=== PATIENT | female | born 1935 | race Asian ===

== ENCOUNTER 2017-08-27 14:10 | Inpatient (IN) | payer MEDICARE ==
[~2017-08-27] VITALS: Ht 152.4 cm; Wt 51.3 kg
[2017-08-27 15:50] LABS: CALCIUM 8.7 mg/dL (8.5-10.1); CARBON DIOXIDE 25.9 mmol/L (21-32); CHLORIDE SERUM 102 mmol/L (98-107); CREATININE SERUM 0.7 mg/dL (0.6-1.0); GLUCOSE SERUM 156 mg/dL (74-106); POTASSIUM SERUM 3.6 mmol/L (3.5-5.1); SODIUM SERUM 138 mmol/L (136-145)
[2017-08-27 15:58] LABS: BASOPHIL % 0.6 % (0-2); PLATELET COUNT 356 x10^3mcL (130-400); RED CELL DISTRIBUTION WIDTH 13.3 % (11.5-14.5)
[2017-08-27 16:03] LABS: ALBUMIN 3.7 g/dL (3.4-5.0); ALKALINE PHOSPHATASE 75 U/L (46-116); ALT/SGPT 34 U/L (14-59); AMYLASE 65 U/L (25-115); AST/SGOT 25 U/L (15-37); BILIRUBIN TOTAL 0.58 mg/dL (0.20-1.00); HDL CHOLESTEROL 37 mg/dL (40-60); LIPASE 320 IU/L (73-393); MAGNESIUM 2.1 mg/dL (1.8-2.4); T4(THYROXINE) 6.5 ug/dL (4.7-13.3)
[2017-08-27 16:04] LABS: CHOLESTEROL 238 mg/dL (<200); TOTAL PROTEIN, SERUM 8.3 g/dL (6.4-8.2)
[2017-08-27 16:31] LABS: UA SPECIFIC GRAVITY <=1.005 (1.005-1.035); microscopic required? YES; urine erythrocyte NEGATIVE (NEGATIVE)
[2017-08-27 16:39] LABS: AMPHETAMINE QUAL UR NONE DETECTED (NEG <=1000)
[2017-08-27 18:17] LABS: HDL CHOLESTEROL 36 mg/dL (40-60)
[2017-08-27 18:19] LABS: CHOLESTEROL 228 mg/dL (<200); CHOLESTEROL/HDL RATIO 6.3; TRIGLYCERIDES 526 mg/dL (<150)
[2017-08-27] MEDS ORDERED: METOPROLOL TART25 M1 (18:42)
[2017-08-27] MEDS ORDERED: LOSARTAN POTASS25 M1 PO (18:42)
[2017-08-27 19:07] VITALS: BP 168/84
[2017-08-27] MEDS ORDERED: LOPRESSOR100 M1 PO (20:12)
[2017-08-27] MEDS ORDERED: ALENDRONATE SOD35 M3 PO (20:13)
[2017-08-27 21:05] VITALS: BP 147/84
[2017-08-28] VITALS (10 sets, daily range): BP systolic 111–172; BP diastolic 50–78
[2017-08-28 07:10] LABS: BASOPHIL % 0.6 % (0-2); PLATELET COUNT 312 x10^3mcL (130-400); RED CELL DISTRIBUTION WIDTH 13.4 % (11.5-14.5)
[2017-08-28 07:19] LABS: CARBON DIOXIDE 23.9 mmol/L (21-32); CHLORIDE SERUM 108 mmol/L (98-107); CREATININE SERUM 0.6 mg/dL (0.6-1.0); GLUCOSE SERUM 117 mg/dL (74-106); MAGNESIUM 2.1 mg/dL (1.8-2.4); PHOSPHOROUS 2.6 mg/dL (2.5-4.9); POTASSIUM SERUM 3.2 mmol/L (3.5-5.1); SODIUM SERUM 144 mmol/L (136-145)
[2017-08-29] VITALS (7 sets, daily range): BP systolic 115–169; BP diastolic 59–98
[2017-08-29 06:38] LABS: CALCIUM 8.4 mg/dL (8.5-10.1); CARBON DIOXIDE 22.8 mmol/L (21-32); CHLORIDE SERUM 109 mmol/L (98-107); CREATININE SERUM 0.7 mg/dL (0.6-1.0); GLUCOSE SERUM 125 mg/dL (74-106); POTASSIUM SERUM 3.6 mmol/L (3.5-5.1); SODIUM SERUM 142 mmol/L (136-145)
[2017-08-29 06:39] LABS: BASOPHIL % 0.8 % (0-2); PLATELET COUNT 312 x10^3mcL (130-400); RED CELL DISTRIBUTION WIDTH 14.1 % (11.5-14.5)
[2017-08-30 06:38] LABS: CALCIUM 8.7 mg/dL (8.5-10.1); CARBON DIOXIDE 22.3 mmol/L (21-32); CHLORIDE SERUM 106 mmol/L (98-107); CREATININE SERUM 0.6 mg/dL (0.6-1.0); GLUCOSE SERUM 130 mg/dL (74-106); POTASSIUM SERUM 3.6 mmol/L (3.5-5.1); SODIUM SERUM 141 mmol/L (136-145)
[2017-08-30 09:50] VITALS: BP 132/69
[2017-08-30] MEDS ORDERED: LEVAQUIN500 M1 PO (10:46)
[2017-08-30] MEDS ORDERED: ECO81 PO (13:11)
[2017-08-30] MEDS ORDERED: COZ50 PO (13:11)
[2017-08-30] MEDS ORDERED: LIPI10 PO (13:12)
[2017-08-30] MEDS ORDERED: LAC PO (13:12)
[2017-08-30] MEDS ORDERED: MECLIZINE HCL12.5 MG PO (13:13)
[2017-08-30] MEDS ORDERED: TYL325 PO (13:13)
[2017-08-30] MEDS ORDERED: APAP/HYDROCODON1 T13 PO (13:13)
[2017-08-30] MEDS ORDERED: COL100 PO (13:13)
[2017-08-30] MEDS ORDERED: BG FS (13:13)
== END 2017-08-30 16:30 | DRG 64 ==
LOC: ED 14:10 → DU 17:38
PROVIDERS: Emergency Medicine; Family Medicine
DX: I63.9 Cerebral infarction, unspecified (principal); G93.41 Metabolic encephalopathy; G93.49 Other encephalopathy; N39.0 Urinary tract infection, site not specified; G81.91 Hemiplegia, unspecified affecting right dominant side; R47.81 Slurred speech; I10 Essential (primary) hypertension; E11.65 Type 2 diabetes mellitus with hyperglycemia; E11.51 Type 2 diabetes mellitus with diabetic peripheral angiopathy without gangrene; E87.6 Hypokalemia; M81.0 Age-related osteoporosis without current pathological fracture; E78.5 Hyperlipidemia, unspecified; Z68.22 Body mass index [BMI] 22.0-22.9, adult
CPT/HCPCS: 82962; 83880; 92523; 92610; 97110-GP; 97116-GP; 97530-GP; J0360; J0696; J2550; J7030; J8597; Q0092